=== PATIENT | female | born 1945 | race Caucasian/White ===

== ENCOUNTER → 2016-04-27 | Outpatient (REF) | payer MEDICARE ==
[2016-04-27 11:26] LABS: INR 1.77
== END | disposition home or self-care (01) ==
LOC: M SFHCCLAY 07:29
PROVIDERS: ATTEND Family Medicine
DX: Z51.81 Encounter for therapeutic drug level monitoring (principal); Z79.01 Long term (current) use of anticoagulants

== ENCOUNTER → 2016-05-11 | Outpatient (REF) | payer MEDICARE ==
[2016-05-11 11:39] LABS: INR 2.25
== END | disposition home or self-care (01) ==
LOC: M SFHCCLAY 09:01
PROVIDERS: ATTEND Family Medicine
DX: Z51.81 Encounter for therapeutic drug level monitoring (principal); Z79.01 Long term (current) use of anticoagulants

== ENCOUNTER → 2016-06-01 | Outpatient (REF) | payer MEDICARE ==
[2016-06-01 11:30] LABS: INR 2.21
== END | disposition home or self-care (01) ==
LOC: M SFHCCLAY 08:00
PROVIDERS: ATTEND Family Medicine
DX: Z51.81 Encounter for therapeutic drug level monitoring (principal); Z79.01 Long term (current) use of anticoagulants

== ENCOUNTER → 2016-06-29 | Outpatient (REF) | payer MEDICARE ==
[2016-06-29 11:51] LABS: INR 2.82
== END ==
LOC: M SFHCCLAY 09:49
PROVIDERS: ATTEND Family Medicine
DX: Z51.81 Encounter for therapeutic drug level monitoring (principal); Z79.01 Long term (current) use of anticoagulants; R30.0 Dysuria
CPT/HCPCS: 81002; 85610; 87086; G0463

== ENCOUNTER → 2016-07-29 | Outpatient (REF) | payer MEDICARE ==
[2016-07-29 11:39] LABS: INR 2.65
== END ==
LOC: M SFHCCLAY 08:02
PROVIDERS: ATTEND Family Medicine
DX: Z86.718 Personal history of other venous thrombosis and embolism (principal)

== ENCOUNTER → 2016-08-14 | Outpatient (REF) | payer MEDICARE ==
[2016-08-14 18:13] LABS: ANION GAP 6 MEQ/L (8-16); BLOOD UREA NITROGEN 14 MG/DL (7-18); CALCIUM LEVEL 9.6 MG/DL (8.8-10.2); CARBON DIOXIDE LEVEL 31 MEQ/L (21-32); CHLORIDE LEVEL 105 MEQ/L (98-107); CREATININE FOR GFR 0.87 MG/DL (0.55-1.02); GLOMERULAR FILTRATION RATE > 60.0 (>39); GLUCOSE, FASTING 83 MG/DL (83-110); POTASSIUM SERUM 3.9 MEQ/L (3.5-5.1); SODIUM LEVEL 142 MEQ/L (136-145)
[2016-08-14 19:15] LABS: BASO % 0.2 % (0.0-1.0); EOS # 0.2 K/mm3 (0.0-0.50); EOS % 1.8 % (0.0-3.0); INR 1.84; LARGE UNSTAINED CELL # 0.1 K/mm3 (0.0-0.4); LARGE UNSTAINED CELL % 1.1 % (0.0-4.0); LYMPH # 1.7 K/mm3 (1.5-4.5); MEAN CORPUSCULAR HEMOGLOBIN 28.7 pg (27.0-33.0); MEAN CORPUSCULAR HGB CONC 32.7 g/dl (32.0-36.5); MEAN CORPUSCULAR VOLUME 87.7 fl (80.0-96.0); MONO # 0.5 K/mm3 (0.0-0.8); MONO % 5.9 % (0.0-5.0); NEUTROPHILS # 6.3 K/mm3 (1.8-7.7); NEUTROPHILS % 71.9 % (36.0-66.0); PLATELET COUNT, AUTOMATED 261 k/mm3 (150-450); RED CELL DISTRIBUTION WIDTH 13.8 % (11.5-14.5); WHITE BLOOD COUNT 8.8 K/mm3 (4.0-10.0)
== END ==
LOC: M SFHCCLAY 13:02
PROVIDERS: ATTEND Family Medicine
DX: Z01.818 Encounter for other preprocedural examination (principal); S62.102A Fracture of unspecified carpal bone, left wrist, initial encounter for closed fracture; I10 Essential (primary) hypertension; Z86.718 Personal history of other venous thrombosis and embolism; Z79.01 Long term (current) use of anticoagulants; W19.XXXA Unspecified fall, initial encounter; Y92.9 Unspecified place or not applicable; Y93.9 Activity, unspecified; Y99.8 Other external cause status

== ENCOUNTER → 2016-08-26 | Outpatient (REF) | payer MEDICARE ==
[2016-08-26 12:18] LABS: INR 1.57
== END ==
LOC: M SFHCCLAY 07:28
PROVIDERS: ATTEND Family Medicine
DX: Z79.01 Long term (current) use of anticoagulants (principal)

== ENCOUNTER → 2016-09-15 | Outpatient (REF) | payer MEDICARE ==
[2016-09-15 12:39] LABS: INR 2.67
== END ==
LOC: M SFHCCLAY 08:39
PROVIDERS: ATTEND Family Medicine
DX: Z86.718 Personal history of other venous thrombosis and embolism (principal)

== ENCOUNTER → 2016-10-05 | Outpatient (REF) | payer MEDICARE ==
[2016-10-05 11:50] LABS: INR 2.08
== END ==
LOC: M SFHCCLAY 08:28
PROVIDERS: ATTEND Family Medicine
DX: Z86.718 Personal history of other venous thrombosis and embolism (principal)

== ENCOUNTER → 2016-10-26 | Outpatient (REF) | payer MEDICARE ==
[2016-10-26 11:33] LABS: INR 2.13
== END ==
LOC: M SFHCCLAY 08:35
PROVIDERS: ATTEND Family Medicine
DX: Z86.718 Personal history of other venous thrombosis and embolism (principal)

== ENCOUNTER → 2016-11-23 | Outpatient (REF) | payer MEDICARE ==
[2016-11-23 11:57] LABS: INR 1.88
== END ==
LOC: M SFHCCLAY 08:41
PROVIDERS: ATTEND Family Medicine
DX: Z86.718 Personal history of other venous thrombosis and embolism (principal)

== ENCOUNTER → 2017-04-05 | Outpatient (CLI) | payer MEDICARE ==
--- NOTE | 2017-04-05 13:23 | REP ---
Chest x-ray: Two views. History: Cough. Comparison study: April 30, 2014. Findings: The lungs are symmetrically aerated and free of infiltrate. The pleural angles are sharp. Cardiomediastinal silhouette is unremarkable. No bony abnormality is seen. No significant change from the April 30, 2014 study. Impression: No acute disease.
== END ==
LOC: M CLY 10:48
PROVIDERS: ATTEND Family Medicine
DX: R05 Cough (principal)

== ENCOUNTER → 2017-05-31 | Outpatient (REF) | payer MEDICARE ==
[2017-05-31 13:46] LABS: INR 2.36; PROTHROMBIN TIME 26.7 SECONDS (12.4-14.5)
== END ==
LOC: M SFHCCLAY 08:29
DX: Z86.718 Personal history of other venous thrombosis and embolism (principal)
CPT/HCPCS: 85610

== ENCOUNTER → 2017-08-02 | Outpatient (REF) | payer MEDICARE ==
[2017-08-02 11:50] LABS: INR 2.04; PROTHROMBIN TIME 23.7 SECONDS (12.4-14.5)
== END ==
LOC: M SFHCCLAY 08:26
DX: Z86.718 Personal history of other venous thrombosis and embolism (principal)
CPT/HCPCS: 85610

== ENCOUNTER → 2017-08-30 | Outpatient (REF) | payer MEDICARE ==
[2017-08-30 12:11] LABS: INR 1.92; PROTHROMBIN TIME 22.6 SECONDS (12.4-14.5)
== END ==
LOC: M SFHCCLAY 08:40
DX: Z86.718 Personal history of other venous thrombosis and embolism (principal)
CPT/HCPCS: 85610

== ENCOUNTER → 2017-09-27 | Outpatient (REF) | payer MEDICARE ==
[2017-09-27 11:42] LABS: INR 2.01; PROTHROMBIN TIME 23.5 SECONDS (12.4-14.5)
== END ==
LOC: M SFHCCLAY 08:59
DX: Z79.01 Long term (current) use of anticoagulants (principal)
CPT/HCPCS: 85610

== ENCOUNTER → 2017-10-25 | Outpatient (REF) | payer MEDICARE ==
[2017-10-25 12:18] LABS: INR 1.83; PROTHROMBIN TIME 21.5 SECONDS (12.1-14.4)
== END ==
LOC: M SFHCCLAY 08:23
DX: Z79.01 Long term (current) use of anticoagulants (principal)
CPT/HCPCS: 85610

== ENCOUNTER → 2017-11-22 | Outpatient (REF) | payer MEDICARE ==
[2017-11-22 12:08] LABS: INR 1.97; PROTHROMBIN TIME 22.8 SECONDS (12.1-14.4)
== END ==
LOC: M SFHCCLAY 07:53
DX: Z79.01 Long term (current) use of anticoagulants (principal)
CPT/HCPCS: 85610

== ENCOUNTER → 2018-01-17 | Outpatient (REF) | payer MEDICARE ==
[2018-01-17 12:38] LABS: INR 1.87; PROTHROMBIN TIME 21.9 SECONDS (12.1-14.4)
== END ==
LOC: M SFHCCLAY 08:40
DX: Z79.01 Long term (current) use of anticoagulants (principal)
CPT/HCPCS: 85610

== ENCOUNTER → 2018-01-31 | Outpatient (REF) | payer MEDICARE ==
[2018-01-31 12:15] LABS: INR 1.87; PROTHROMBIN TIME 21.9 SECONDS (12.1-14.4)
== END ==
LOC: M SFHCCLAY 08:25
DX: Z79.01 Long term (current) use of anticoagulants (principal)
CPT/HCPCS: 85610

== ENCOUNTER → 2018-02-14 | Outpatient (REF) | payer MEDICARE | LOC: M SFHCCLAY 08:49 | DX: Z79.01 Long term (current) use of anticoagulants (principal) | CPT/HCPCS: 85610 ==

== ENCOUNTER → 2018-03-07 | Outpatient (REF) | payer MEDICARE ==
[2018-03-07 12:06] LABS: INR 1.68; PROTHROMBIN TIME 20.1 SECONDS (12.1-14.4)
== END ==
LOC: M SFHCCLAY 08:53
DX: Z51.81 Encounter for therapeutic drug level monitoring (principal); Z79.01 Long term (current) use of anticoagulants
CPT/HCPCS: 85610

== ENCOUNTER → 2018-04-25 | Outpatient (REF) | payer MEDICARE ==
[2018-04-25 11:35] LABS: BASO % 0.5 % (0.0-1.0); EOS # 0.2 10^3/uL (0.0-0.50); EOS % 3.5 % (0.0-3.0); HEMATOCRIT 39.7 % (36.0-47.0); HEMOGLOBIN 12.5 g/dl (12.0-15.5); LYMPH # 1.4 10^3/uL (1.5-4.5); LYMPH % 23.8 % (24.0-44.0); MEAN CORPUSCULAR HEMOGLOBIN 28.1 pg (27.0-33.0); MEAN CORPUSCULAR HGB CONC 31.5 g/dl (32.0-36.5); MEAN CORPUSCULAR VOLUME 89.2 fl (80.0-96.0); MONO # 0.5 10^3/uL (0.0-0.8); MONO % 8.3 % (0.0-5.0); NEUTROPHILS # 3.8 10^3/uL (1.8-7.7); NEUTROPHILS % 63.1 % (36.0-66.0); PLATELET COUNT, AUTOMATED 223 10^3/uL (150-450); RED BLOOD COUNT 4.45 10^6/uL (4.00-5.40); WHITE BLOOD COUNT 6.1 10^3/uL (4.0-10.0)
[2018-04-25 11:45] LABS: ALBUMIN 3.2 GM/DL (3.2-5.2); ALT/SGPT 23 U/L (12-78); BILIRUBIN,TOTAL 0.5 MG/DL (0.2-1.0); BLOOD UREA NITROGEN 9 MG/DL (7-18); CARBON DIOXIDE LEVEL 29 MEQ/L (21-32); CHLORIDE LEVEL 109 MEQ/L (98-107); CHOLESTEROL LEVEL 134 MG/DL (<200); GLOMERULAR FILTRATION RATE > 60.0 (>39); GLUCOSE, FASTING 95 MG/DL (70-100); HDL CHOLESTEROL 67 MG/DL (>40); INR 1.96; LDL CHOLESTEROL 49 MG/DL (<100); NON-HDL-C 67 MG/DL; POTASSIUM SERUM 4.1 MEQ/L (3.5-5.1); PROTHROMBIN TIME 22.7 SECONDS (12.1-14.4); RHEUMATOID FACTOR QUANT < 10.0 IU/ML (<15.0); SODIUM LEVEL 145 MEQ/L (136-145); TOTAL PROTEIN 6.4 GM/DL (6.4-8.2); TRIGLYCERIDES LEVEL 91 MG/DL (<150)
[2018-04-25 11:59] LABS: ERYTHROCYTE SEDIMENTATION RATE 37 mm/hr (0-30)
[2018-04-27 00:06] LABS: ANA (HEP2) Positive (.); CYCLIC CITRULLINATED PEPTIDE 5 units (0-19)
== END ==
LOC: M SFHCCLAY 08:17
PROVIDERS: ATTEND Family Medicine
DX: Z51.81 Encounter for therapeutic drug level monitoring (principal); Z79.01 Long term (current) use of anticoagulants; I10 Essential (primary) hypertension; M25.562 Pain in left knee; F32.9 Major depressive disorder, single episode, unspecified

== ENCOUNTER → 2018-05-09 | Outpatient (REF) | payer MEDICARE ==
[2018-05-09 11:34] LABS: INR 2.1; PROTHROMBIN TIME 23.9 SECONDS (12.1-14.4)
== END ==
LOC: M SFHCCLAY 08:17
PROVIDERS: ATTEND Family Medicine
DX: Z51.81 Encounter for therapeutic drug level monitoring (principal); Z79.01 Long term (current) use of anticoagulants

== ENCOUNTER → 2018-05-23 | Outpatient (REF) | payer MEDICARE ==
[2018-05-23 11:54] LABS: INR 2.3; PROTHROMBIN TIME 25.8 SECONDS (12.1-14.4)
== END ==
LOC: M SFHCCLAY 08:11
PROVIDERS: ATTEND Family Medicine
DX: Z79.01 Long term (current) use of anticoagulants (principal)

== ENCOUNTER → 2018-06-06 | Outpatient (REF) | payer MEDICARE ==
[2018-06-06 12:02] LABS: INR 1.96; PROTHROMBIN TIME 22.7 SECONDS (12.1-14.4)
== END ==
LOC: M SFHCCLAY 08:27
PROVIDERS: ATTEND Family Medicine
DX: Z79.01 Long term (current) use of anticoagulants (principal)

== ENCOUNTER → 2018-07-06 | Outpatient (CLI) | payer MEDICARE ==
--- NOTE | 2018-07-06 12:05 | REP ---
MR LUMBAR SPINE WITHOUT CONTRAST: HISTORY: Left sided back pain. COMPARISON: 05/06/2015. Decreased signal intensity on T2-weighted images is present in the T11-12 through L5-S1 intervertebral disc. The discs are decreased in height. These findings are consistent with disc degeneration. Disc bulges are present at the T10-11 and T12-L1 levels. There is minimal effacement of the thecal sac without spinal cord compression. The neural foramina are patent on sagittal images. A diffuse disc bulge is present at the L1-2 level. There is hypertrophy of the ligamenta flava and posterior articulating facets. These findings produce mild central canal stenosis. The previously noted disc protrusion is not seen. The L1 nerves exit the neural foramina without compression. A diffuse disc bulge is present at the L2-3 level. There is hypertrophy of the ligamenta flava and posterior articulating facets. There are 3 mm of grade 1 spondylolisthesis of L2 on 3. These findings produce moderate central canal stenosis. The L2 nerves exit the neural foramina without compression. A diffuse disc bulge and small right paracentral disc protrusion are present at the L3-4 level. There is hypertrophy of the ligamenta flava and posterior articulating facets. There are 4 mm of grade 1 spondylolisthesis of L3 on 4. These findings produce mild central canal stenosis. The L3 nerves exit the neural foramina without compression. A diffuse disc bulge is present at the L4-5 level. There is minimal compression of the thecal sac. There is hypertrophy of the posterior articulating facets. The L4 nerves exit the neural foramina without compression. A left laminectomy defect is present. A diffuse disc bulge and mild size right intraforaminal and lateral disc protrusion are present. There is minimal compression of the thecal sac. There is hypertrophy of the posterior articulating facets. There is posterolateral displacement of the right L5 nerve distal to the neural foramen. The left L5 nerve exits the neural foramen without compression. The conus medullaris is normal in appearance terminating at the level of the T12-L1 intervertebral disc. Hemangiomas are present in the T12, L2, and L4 vertebral bodies. Increased signal intensity on T2-weighted images is present in the L2-S1 vertebral bodies. This represents degenerative change. IMPRESSION: 1. Mild central canal stenosis at the L1-2 level secondary to disc bulge, ligamentous, and facet hypertrophy. There has been progression of the canal stenosis. The previously noted disc protrusion is not seen. 2. Moderate central canal stenosis at the L2-3 level secondary to disc bulge, ligamentous, and facet hypertrophy and grade 1 spondylolisthesis. 3. Mild central canal stenosis at the L3-4 level secondary to disc bulge, disc protrusion, ligamentous and facet hypertrophy and grade 1 spondylolisthesis. 4. Diffuse disc bugle at the L4-5 level with minimal thecal sac compression. A left laminectomy defect is present. 5. Diffuse disc bulge at the L5-S1 level with minimal thecal sac compression. A mild sized right intraforaminal and lateral disc protrusion is present. There is posterolateral displacement of the right L5 nerve distal to the neural foramen. There is no other significant change. Electronically Signed by Iraj Goodman MD 07/06/2018 12:17 P
== END ==
LOC: M RAD 10:00
PROVIDERS: ATTEND Family Medicine
DX: M51.16 Intervertebral disc disorders with radiculopathy, lumbar region (principal); M48.061 Spinal stenosis, lumbar region without neurogenic claudication; M51.17 Intervertebral disc disorders with radiculopathy, lumbosacral region

== ENCOUNTER → 2018-07-18 | Outpatient (REF) | payer MEDICARE ==
[2018-07-18 11:39] LABS: INR 1.76; PROTHROMBIN TIME 20.8 SECONDS (12.1-14.4)
== END ==
LOC: M SFHCCLAY 08:59
PROVIDERS: ATTEND Family Medicine
DX: Z79.01 Long term (current) use of anticoagulants (principal)

== ENCOUNTER → 2018-08-01 | Outpatient (REF) | payer MEDICARE ==
[2018-08-01 11:36] LABS: INR 1.72; PROTHROMBIN TIME 20.5 SECONDS (12.1-14.4)
== END ==
LOC: M SFHCCLAY 08:34
PROVIDERS: ATTEND Family Medicine
DX: Z79.01 Long term (current) use of anticoagulants (principal)

== ENCOUNTER → 2018-08-08 | Outpatient (REF) | payer MEDICARE ==
[2018-08-08 11:40] LABS: INR 2.03; PROTHROMBIN TIME 23.3 SECONDS (12.1-14.4)
== END ==
LOC: M SFHCCLAY 08:25
PROVIDERS: ATTEND Family Medicine
DX: Z79.01 Long term (current) use of anticoagulants (principal); Z86.718 Personal history of other venous thrombosis and embolism

== ENCOUNTER → 2018-08-15 | Outpatient (REF) | payer MEDICARE ==
[2018-08-15 11:52] LABS: INR 1.83; PROTHROMBIN TIME 21.5 SECONDS (12.1-14.4)
== END ==
LOC: M SFHCCLAY 08:46
PROVIDERS: ATTEND Family Medicine
DX: Z79.01 Long term (current) use of anticoagulants (principal); Z86.718 Personal history of other venous thrombosis and embolism

== ENCOUNTER → 2018-08-22 | Outpatient (REF) | payer MEDICARE ==
[2018-08-22 11:56] LABS: INR 2.16; PROTHROMBIN TIME 24.5 SECONDS (12.1-14.4)
== END ==
LOC: M SFHCCLAY 10:34
PROVIDERS: ATTEND Family Medicine
DX: Z86.718 Personal history of other venous thrombosis and embolism (principal); Z79.01 Long term (current) use of anticoagulants

== ENCOUNTER → 2018-08-29 | Outpatient (REF) | payer MEDICARE ==
[2018-08-29 12:29] LABS: INR 2.07; PROTHROMBIN TIME 23.7 SECONDS (12.1-14.4)
== END ==
LOC: M SFHCCLAY 08:30
PROVIDERS: ATTEND Family Medicine
DX: Z79.01 Long term (current) use of anticoagulants (principal)

== ENCOUNTER → 2018-09-13 | Outpatient (REF) | payer MEDICARE ==
[2018-09-13 11:41] LABS: INR 1.85; PROTHROMBIN TIME 21.7 SECONDS (12.1-14.4)
== END ==
LOC: M SFHCCLAY 08:41
PROVIDERS: ATTEND Family Medicine
DX: Z79.01 Long term (current) use of anticoagulants (principal)

== ENCOUNTER → 2018-10-18 | Outpatient (REF) | payer MEDICARE ==
[2018-10-18 11:46] LABS: INR 2.07; PROTHROMBIN TIME 23.1 SECONDS (11.8-14.0)
== END ==
LOC: M SFHCCLAY 07:34
PROVIDERS: ATTEND Family Medicine
DX: Z79.01 Long term (current) use of anticoagulants (principal); Z86.718 Personal history of other venous thrombosis and embolism

== ENCOUNTER → 2018-11-07 | Outpatient (REF) | payer MEDICARE ==
[2018-11-07 11:41] LABS: INR 2.29
== END ==
LOC: M SFHCCLAY 08:36
PROVIDERS: ATTEND Family Medicine
DX: Z79.01 Long term (current) use of anticoagulants (principal); Z86.718 Personal history of other venous thrombosis and embolism

== ENCOUNTER 2018-12-01 21:57 | Emergency (ER) | payer MEDICARE ==
[~2018-12-01] VITALS: Ht 162.6 cm; Wt 96.0 kg
[2018-12-01] MEDS ORDERED: ONDANSETRON 4MG/2ML VIAL (J2405) IV ONE (22:45)
[2018-12-01] MEDS ORDERED: NS 1,000 ML IV ONE (22:45)
[2018-12-01 23:14] LABS: BASO % 0.4 % (0.0-1.0); EOS # 0.2 10^3/uL (0.0-0.50); EOS % 3.5 % (0.0-3.0); HEMATOCRIT 36.8 % (36.0-47.0); LYMPH # 1.8 10^3/uL (1.5-4.5); LYMPH % 26.7 % (24.0-44.0); MEAN CORPUSCULAR HEMOGLOBIN 28.6 pg (27.0-33.0); MEAN CORPUSCULAR HGB CONC 32.6 g/dl (32.0-36.5); MEAN CORPUSCULAR VOLUME 87.6 fl (80.0-96.0); MONO # 0.7 10^3/uL (0.0-0.8); MONO % 9.5 % (0.0-5.0); NEUTROPHILS # 4.1 10^3/uL (1.8-7.7); NEUTROPHILS % 59.6 % (36.0-66.0); PLATELET COUNT, AUTOMATED 218 10^3/uL (150-450); WHITE BLOOD COUNT 6.8 10^3/uL (4.0-10.0)
[2018-12-01 23:32] LABS: INR 2.99
[2018-12-01 23:33] LABS: PARTIAL THROMBOPLASTIN TIME 37.7 SECONDS (25.0-38.4)
[2018-12-01 23:39] LABS: ALBUMIN 3.4 GM/DL (3.2-5.2); ALT/SGPT 21 U/L (12-78); AMYLASE 50 U/L (25-115); BILIRUBIN,DIRECT 0.2 MG/DL (0.0-0.2); BILIRUBIN,TOTAL 0.5 MG/DL (0.2-1.0); CPK CREATINE PHOSPHOKINASE 110 U/L (26-192); LIPASE 51 U/L (73-393); MB/CK RELATIVE INDEX 1.82 (< OR =4); TOTAL PROTEIN 6.2 GM/DL (6.4-8.2); TROPONIN I < 0.02 NG/ML (< 0.10)
[2018-12-01] MEDS ORDERED: ISOVUE-370 76% 100ML VIAL (Q9967) As Ordered ONE (23:50)
--- NOTE | 2018-12-02 02:21 | REPVR ---
EXAM: CT Abdomen and Pelvis With Contrast EXAM DATE/TIME: 12/01/2018 12:10 AM CLINICAL HISTORY: 72 years old, female; Abdominal pain; Generalized TECHNIQUE: Imaging protocol: Axial computed tomography images of the abdomen and pelvis with intravenous contrast. Coronal and sagittal reformatted images were created and reviewed. Radiation optimization: All CT scans at this facility use at least one of these dose optimization techniques: automated exposure control; mA and/or kV adjustment per patient size (includes targeted exams where dose is matched to clinical indication); or iterative reconstruction. Contrast material: ISOVUE 370;Contrast volume: 100 ml;Contrast route: IV; COMPARISON: No relevant prior studies available. FINDINGS: Lungs: Mild bibasilar atelectasis. Liver: Mild diffuse fatty infiltration of liver. Gallbladder and bile ducts: Status post cholecystectomy. Pancreas: Pancreatic atrophy. Spleen: Normal. No splenomegaly. Adrenals: Normal. No mass. Kidneys and ureters: Cyst in the right kidney measuring 7 mm. Stomach and bowel: Partial colectomy with multiple bowel anastomotic surgeries. Postsurgical changes in the rectosigmoid junction with mild wall thickening at the anastomotic site and small fecal retention. Small bowel is unremarkable. Appendix: No evidence of appendicitis. Intraperitoneal space: Normal. No free air. No significant fluid collection. Vasculature: Atherosclerosis. External iliac artery bypass surgery. Lymph nodes: Normal. No enlarged lymph nodes. Bladder: Unremarkable as visualized. Reproductive: Unremarkable as visualized. Bones/joints: Diffuse demineralization of the bones with degenerative changes. Soft tissues: Unremarkable. Other findings: Coronary calcifications. IMPRESSION: Partial colectomy with multiple bowel anastomotic surgeries. Postsurgical changes in the rectosigmoid junction with mild wall thickening at the anastomotic site and small fecal retention. Small bowel is unremarkable. COMMENT: Consistent with the [employer]'s Incidental Findings Committee Report (J Am Candido Radiol 2010): Unless the patient's specific circumstances suggest otherwise, any liver lesion 0.5 cm or less, any cystic kidney lesion less than 1.0 cm, and/or any adrenal lesion 1.0 cm or less not otherwise characterized in this report as possessing suspicious or indeterminate imaging features is/are highly likely to be benign and do not require follow-up imaging or biopsy. Electronically signed by: Vivian Huggins On 12/02/2018 02:21:05 AM
[2018-12-02] MEDS ORDERED: ONDA4TAB6 PO (02:51)
[2018-12-02 03:00] VITALS: BP 142/67
--- NOTE | 2018-12-02 07:19 | ECGEPIP ---
[facility] - ED Test Date: 2018-12-01 Pat Name: MADDY SANTA Department: Room: - Gender: Female Burn[place]: : 1945 Requested By: VAL Ervin Order Number: [id number] Reading MD: Neeraj Johnston Measurements Intervals [place] Rate: 62 P: 80 MT: 250 QRS: -20 QRSD: 113 T: 24 QT: 417 QTc: 424 Interpretive Statements SINUS RHYTHM WITH SINUS ARRHYTHMIA WITH FIRST DEGREE AV BLOCK SEPTAL MYOCARDIAL INFARCTION, OF INDETERMINATE AGE NO PRIORS FOR COMPARISON Electronically Signed on 12-02-2018 7:19:26 EDT by Neeraj Johnston
== END 2018-12-02 03:10 | disposition home or self-care (01) ==
LOC: M ED 21:57
DX: R10.9 Unspecified abdominal pain (principal); I44.0 Atrioventricular block, first degree; J44.9 Chronic obstructive pulmonary disease, unspecified; I10 Essential (primary) hypertension; G47.30 Sleep apnea, unspecified; E78.5 Hyperlipidemia, unspecified; M19.90 Unspecified osteoarthritis, unspecified site; Z86.718 Personal history of other venous thrombosis and embolism; Z87.891 Personal history of nicotine dependence; Z90.49 Acquired absence of other specified parts of digestive tract
CPT/HCPCS: 74177; 80047; 80076; 82150; 82550; 82553; 83605; 83690; 84484; 85025; 85610; 85730; 93005; 93041; 96361; 96374; 99285; J2405; Q9967

== ENCOUNTER → 2018-12-05 | Outpatient (REF) | payer MEDICARE ==
[~2018-12-05] MED LIST: ONDA4TAB6 PO
[2018-12-05 12:19] LABS: INR 3.36
== END ==
LOC: M SFHCCLAY 08:35
PROVIDERS: ATTEND Family Medicine
DX: Z79.01 Long term (current) use of anticoagulants (principal); Z86.718 Personal history of other venous thrombosis and embolism

== ENCOUNTER → 2018-12-06 | Outpatient (CLI) | payer MEDICARE ==
--- NOTE | 2018-12-06 14:47 | REP ---
CT of the left hip: The study is performed without IV contrast. Axial images are acquired with helical scanning and a reformatted sagittal and coronal projections. There are no comparison studies. There is advanced osteoarthritis with subcortical cysts at the superior portion of the femoral head and in the acetabular roof. There is fusion of t the humeral head superiorly to the acetabular roof. Some of the subcortical cysts cross the joint line. Mineralization is normal. There is no fracture or dislocation. There are no calcifications or foreign bodies. Impression: Advanced osteoarthritis with subcortical cysts as described. The humeral head superiorly is fused to the acetabular roof. Electronically Signed by Miki Tran MD 12/06/2018 02:39 P
== END ==
LOC: M RAD 13:48
PROVIDERS: ATTEND Orthopaedic Surgery
DX: M16.12 Unilateral primary osteoarthritis, left hip (principal); M24.652 Ankylosis, left hip; M85.5 Aneurysmal bone cyst

== ENCOUNTER → 2018-12-20 | Outpatient (REF) | payer MEDICARE ==
[2018-12-20 12:58] LABS: INR 2.01; PROTHROMBIN TIME 22.5 SECONDS (11.8-14.0)
== END ==
LOC: M SFHCCLAY 08:14
PROVIDERS: ATTEND Family Medicine
DX: Z79.01 Long term (current) use of anticoagulants (principal); Z86.718 Personal history of other venous thrombosis and embolism

== ENCOUNTER → 2019-01-09 | Outpatient (REF) | payer MEDICARE ==
[2019-01-09 12:29] LABS: INR 2.63
== END ==
LOC: M SFHCCLAY 09:37
PROVIDERS: ATTEND Family Medicine
DX: Z79.01 Long term (current) use of anticoagulants (principal); Z86.718 Personal history of other venous thrombosis and embolism

== ENCOUNTER → 2019-02-06 | Outpatient (REF) | payer MEDICARE ==
[2019-02-06 11:36] LABS: INR 2.7; PROTHROMBIN TIME 28.5 SECONDS (11.8-14.0)
== END ==
LOC: M SFHCCLAY 08:39
PROVIDERS: ATTEND Family Medicine
DX: Z79.01 Long term (current) use of anticoagulants (principal); Z86.718 Personal history of other venous thrombosis and embolism

== ENCOUNTER → 2019-03-06 | Outpatient (REF) | payer MEDICARE ==
[2019-03-06 11:42] LABS: INR 2.45; PROTHROMBIN TIME 26.4 SECONDS (11.8-14.0)
== END ==
LOC: M SFHCCLAY 08:44
PROVIDERS: ATTEND Family Medicine
DX: Z79.01 Long term (current) use of anticoagulants (principal); Z86.718 Personal history of other venous thrombosis and embolism

== ENCOUNTER → 2019-03-27 | Outpatient (REF) | payer MEDICARE ==
[2019-03-27 17:00] LABS: ALBUMIN 3.5 GM/DL (3.2-5.2); ALT/SGPT 20 U/L (12-78); BILIRUBIN,TOTAL 0.7 MG/DL (0.2-1.0); BLOOD UREA NITROGEN 12 MG/DL (7-18); CALCIUM LEVEL 9.8 MG/DL (8.8-10.2); CARBON DIOXIDE LEVEL 30 MEQ/L (21-32); CHLORIDE LEVEL 107 MEQ/L (98-107); CHOLESTEROL LEVEL 137 MG/DL (<200); CHOLESTEROL RISK RATIO 2.107 (<5); CREATININE FOR GFR 0.78 MG/DL (0.55-1.30); GLOMERULAR FILTRATION RATE > 60.0 (>39); GLUCOSE, FASTING 91 MG/DL (70-100); HDL CHOLESTEROL 65 MG/DL (>40); LDL CHOLESTEROL 52 MG/DL (<100); NON-HDL-C 72 MG/DL; POTASSIUM SERUM 3.8 MEQ/L (3.5-5.1); SODIUM LEVEL 142 MEQ/L (136-145); TOTAL PROTEIN 6.9 GM/DL (6.4-8.2); TRIGLYCERIDES LEVEL 102 MG/DL (<150)
[2019-03-27 17:15] LABS: BASO % 0.5 % (0.0-1.0); EOS # 0.2 10^3/uL (0.0-0.5); EOS % 3.5 % (0.0-3.0); HEMATOCRIT 39.3 % (36.0-47.0); HEMOGLOBIN 12.1 g/dl (12.0-15.5); LYMPH # 1.7 10^3/uL (1.5-5.0); LYMPH % 25.3 % (24.0-44.0); MEAN CORPUSCULAR HEMOGLOBIN 27.1 pg (27.0-33.0); MEAN CORPUSCULAR HGB CONC 30.8 g/dl (32.0-36.5); MEAN CORPUSCULAR VOLUME 87.9 fl (80.0-96.0); MONO # 0.6 10^3/uL (0.0-0.8); MONO % 9.3 % (0.0-5.0); NEUTROPHILS # 4.1 10^3/uL (1.5-8.5); NEUTROPHILS % 61.1 % (36.0-66.0); PLATELET COUNT, AUTOMATED 236 10^3/uL (150-450); RED BLOOD COUNT 4.47 10^6/uL (4.00-5.40); WHITE BLOOD COUNT 6.6 10^3/uL (4.0-10.0)
== END ==
LOC: M SFHCCLAY 11:56
PROVIDERS: ATTEND Family Medicine
DX: I10 Essential (primary) hypertension (principal); E78.2 Mixed hyperlipidemia
CPT/HCPCS: 80053; 80061; 85025; G0463

== ENCOUNTER → 2019-04-28 | Outpatient (REF) | payer MEDICARE ==
[2019-04-28 11:54] LABS: INR 2.05; PROTHROMBIN TIME 22.9 SECONDS (11.8-14.0)
== END ==
LOC: M SFHCCLAY 08:37
PROVIDERS: ATTEND Family Medicine
DX: Z79.01 Long term (current) use of anticoagulants (principal); Z86.718 Personal history of other venous thrombosis and embolism

== ENCOUNTER → 2019-05-12 | Outpatient (CLI) | payer MEDICARE ==
--- NOTE | 2019-05-12 15:16 | REP ---
Bilateral lower extremity arterial Doppler ultrasound: History: History of stents. Pain in the legs. Findings: Ankle brachial indices could not be accomplished bilaterally due to patient tolerance. An occluded fem-fem bypass graft is noted exam quality is inhibited due to patient habitus and swelling. Moderate to severe plaquing is noted bilaterally. Monophasic waveforms are noted in the distal leg on the right and in the common femoral artery and proximal profunda femoral artery and the distal anterior and posterior tibial arteries on the left. No focal stenosis is seen. Right lower extremity arterial Doppler velocity chart: Right CF A 131 cm/S Profunda 84 Proximal SFA 125 Mid SFA 93 Distal SFA 76 Popliteal 85 Proximal AT A 63 Tibioperoneal trunk 84 Proximal SUPERINTENDENT PIER 65 Distal SUPERINTENDENT PIER 76 Distal AT A 112 Left lower extremity arterial Doppler velocity chart: CF A 147 cm/S Profunda 139 Proximal SFA 110 Mid SFA 74 Distal SFA 93 Popliteal 60 Proximal AT A 62 Tibioperoneal trunk 63 Proximal SUPERINTENDENT PIER 91 Distal SUPERINTENDENT PIER 83 Distal AT A 91 Electronically Signed by Domo Bates MD 05/12/2019 03:08 P
== END ==
LOC: M RAD 11:29
PROVIDERS: ATTEND Physician Assistant
DX: M79.606 Pain in leg, unspecified (principal); I73.9 Peripheral vascular disease, unspecified

== ENCOUNTER → 2019-05-29 | Outpatient (REF) | payer MEDICARE ==
[2019-05-29 12:39] LABS: BLOOD UREA NITROGEN 13 MG/DL (7-18); CREATININE FOR GFR 0.79 MG/DL (0.55-1.30); GLOMERULAR FILTRATION RATE > 60.0 (>39)
== END ==
LOC: M LABDRAWC 11:11
PROVIDERS: ATTEND Physician Assistant
DX: I70.213 Atherosclerosis of native arteries of extremities with intermittent claudication, bilateral legs (principal); I87.2 Venous insufficiency (chronic) (peripheral)

== ENCOUNTER → 2019-05-29 | Outpatient (REF) | payer MEDICARE ==
[2019-05-29 12:50] LABS: INR 2.49; PROTHROMBIN TIME 26.8 SECONDS (11.8-14.0)
== END ==
LOC: M SFHCCLAY 08:54
PROVIDERS: ATTEND Family Medicine
DX: Z79.01 Long term (current) use of anticoagulants (principal); Z86.718 Personal history of other venous thrombosis and embolism

== ENCOUNTER → 2019-05-29 | Outpatient (CLI) | payer MEDICARE | LOC: M PT 10:44 | PROVIDERS: ATTEND Family Medicine | DX: M54.16 Radiculopathy, lumbar region (principal); I70.213 Atherosclerosis of native arteries of extremities with intermittent claudication, bilateral legs; I87.2 Venous insufficiency (chronic) (peripheral); Z79.01 Long term (current) use of anticoagulants; Z86.718 Personal history of other venous thrombosis and embolism ==

== ENCOUNTER → 2019-06-02 | Outpatient (CLI) | payer MEDICARE ==
[~2019-06-02] MED LIST changes: +ISOVUE-370 76% 100ML VIAL (Q9967) As Ordered ONE
--- NOTE | 2019-06-02 13:52 | REP ---
BILATERAL LOWER EXTREMITY DUPLEX VENOUS ULTRASOUND: VENOUS INSUFFICIENCY STUDY. HISTORY: Venous insufficiency. FINDINGS: The deep veins are anechoic and fully compressible from the groin to the popliteal fossa on two-dimensional scanning in both lower extremities. Color flow and spectral Doppler interrogation show no evidence of DVT. REFLUX EVALUATION: In the deep system, there is reflux greater than 0.5 seconds in duration from the common femoral vein segments to the popliteal vein segment and throughout the length of the greater saphenous vein. No reflux is seen in the right lesser saphenous vein or anterior accessory greater saphenous vein. Proximally, at the greater saphenous femoral vein junction, there is 3.8-second duration reflux in a 6.5 mm greater saphenous vein. At mid thigh, reflux duration is 4.8 seconds and diameter of the greater saphenous vein is 5.1 mm. At the knee, the greater saphenous vein measures 4.1 mm in diameter and demonstrates 6.7-second duration reflux. The lesser saphenous vein measures 1.5 mm. On the left, there is mild reflux in the deep system from the common femoral vein to the mid superficial femoral vein. No reflux is observed in the distal superficial femoral vein or popliteal vein. Reflux is present in the greater saphenous vein from proximal to mid thigh level to the knee. Minimal reflux is seen in the left lesser saphenous and anterior greater saphenous accessory vein. On the left, the greater saphenous vein measures 4.7 mm in greatest diameter at the proximal saphenofemoral junction. At mid thigh, its dimensions are 4.3 mm and it displays 4.7-second duration reflux. At the knee, it measures 3.8 mm and reflux duration is 4.4 seconds. 2.9-second duration reflux was observed in a 4 mm lesser saphenous vein. IMPRESSION: No evidence of DVT. Bilateral deep and superficial system reflux as above. Electronically Signed by Domo Bates MD 06/02/2019 02:18 P
== END ==
LOC: M RAD 10:00
PROVIDERS: ATTEND Physician Assistant
DX: I87.2 Venous insufficiency (chronic) (peripheral) (principal); I70.213 Atherosclerosis of native arteries of extremities with intermittent claudication, bilateral legs
CPT/HCPCS: 75635; 93970; Q9967

== ENCOUNTER → 2019-06-19 | Outpatient (CLI) | payer MEDICARE ==
[~2019-06-19] MED LIST changes: +ACETAMINOPHEN TAB 650MG DOSE (2X325MG) PO PRN; +ADV500INH INH; +AMLO25TA PO; +BIOT5TAB3 PO; +CALC600T57 PO; +CLOPIDOGREL 75 MG TAB As Ordered ONE; +CLOPIDOGREL 75 MG TAB PO ONE; +COUM1TAB17 PO; +CYMB1CAP4 PO; +D 101000 PO; +FISH1000 PO; +FLUT15.820; +HEPARIN 1,000 UNITS/ML 10ML VIAL (FOR RADIOLOGY& DIALYSIS ONLY)(J1644-10) As Ordered ONE; +ISOVUE-300 61% 50ML VIAL (Q9967) As Ordered ONE; -ISOVUE-370 76% 100ML VIAL (Q9967) As Ordered ONE; +LIDOCAINE 1% MDV 20ML VIAL As Ordered ONE; +LOSA100T50 PO; +MIDAZOLAM INJ 2 MG/2 ML VIAL (J2250) As Ordered ONE; +MULTTAB86 PO; +PERCOCET 5MG/325MG TAB As Ordered ONE; +PERCOCET 5MG/325MG TAB PO PRN; +PROAAER10 INH; +PROBCAP14 PO; +SIMV20TA22 PO; +TRAM50TA2 PO; +TRAV04OPD OP; +ceFAZolin 1GM INJ (J0690 PER 500MG) As Ordered ONE; +fentaNYL 100 MCG/2 ML INJECTION (J3010) As Ordered ONE; +hydrALAZINE INJ 20 MG/ML VIAL As Ordered ONE
[2019-06-19 07:06] LABS: HEMATOCRIT 38.6 % (36.0-47.0); MEAN CORPUSCULAR HEMOGLOBIN 26.7 pg (27.0-33.0); MEAN CORPUSCULAR HGB CONC 31.1 g/dl (32.0-36.5); PLATELET COUNT, AUTOMATED 211 10^3/uL (150-450); RED BLOOD COUNT 4.49 10^6/uL (4.00-5.40); WHITE BLOOD COUNT 6.2 10^3/uL (4.0-10.0)
[2019-06-19 07:19] LABS: INR 1.82; PROTHROMBIN TIME 20.8 SECONDS (11.8-14.0)
[2019-06-19 07:33] LABS: BLOOD UREA NITROGEN 12 MG/DL (7-18); CALCIUM LEVEL 9.8 MG/DL (8.8-10.2); CARBON DIOXIDE LEVEL 29 MEQ/L (21-32); CHLORIDE LEVEL 108 MEQ/L (98-107); CREATININE FOR GFR 0.77 MG/DL (0.55-1.30); GLOMERULAR FILTRATION RATE > 60.0 (>39); GLUCOSE, FASTING 91 MG/DL (70-100); POTASSIUM SERUM 3.6 MEQ/L (3.5-5.1); SODIUM LEVEL 141 MEQ/L (136-145)
--- NOTE | 2019-06-19 10:52 | ROOPDOC ---
[facility] Report Of Operation Report of Operation DATE OF PROCEDURE: 06/19/19 PREPROCEDURE DIAGNOSES: Atherosclerosis of [place] arteries with lifestyle limiting claudication POSTPROCEDURE DIAGNOSES: Same PROCEDURE: 1. US guided access right and left common femoral arteries 2. Aortoiliofemoral arteriograms 3. 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 Predilate iliac arteries with 3 x 100 mustang balloons and a 3 x 100 mustang right DEV and 4 x 100 gregory balloon left DEV 5. Kissing stents bilateral common iliac arteries with 8 x 29 VBX stents and post-dilation with 9 x 40 mustang and 8 x 40 conquest balloons 6. Angioplasty left external iliac artery with 9 x 40 conquest balloon, followed by 8 x 27 express stent 7. Completion arteriograms 8. Mynx closure bilateral common femoral arteries SURGEON: Criss Fernando MD ANESTHESIA: Local anesthesia 10 mL lidocaine. Moderate intravenous conscious sedation was supervised by Dr. Fernando. The patient was independently monitored by registered nurse assigned to the Department of radiology using automated blood pressure, EKG, and pulse oximetry. The detailed sedation record is permanently stored in the hospital information system. The following is a brief sedation record: Start time 07:47,. Time 10:01, Versed 4 mg IV, fentanyl 200 g IV, heparin 5000 units IV, Ancef 1 g IV. CONTRAST: 56 mL Isovue-300 INDICATION FOR PROCEDURE: This is a very pleasant 73-year-old patient with known atherosclerosis in the [place] arteries who is status post procedures done in [place] and was lost to follow-up down there. She has a history of a left calf fasciotomy for DVT, bilateral kissing stents in the iliac arteries with failure of the left stent, right to left femorofemoral bypass that is occluded. She returns with lifestyle limiting claudication and can only go about 10-20 feet before she has to stop and rest due to pain primarily in the left calf greater than the right. She also would like to have her left hip replaced, but her ort hopedic doctor said she needs to improve her blood flow first. We have reviewed a CTA that reveals poorly expanded common iliac artery stents bilaterally with heavy calcified plaque, and we discussed the risks benefits and alternatives to an arteriogram to try to improve flow through the iliac vessels. The patient also has a stenosis in the left popliteal artery, but is not occluded and I feel the bigger issue is her inflow. Because there are already kissing stents, we do not have an up and over capability to treat the left from the right, and the patient is obese with back and leg issues and cannot lay completely flat, so I believe an antegrade procedure would be extremely challenging. Therefore, today, would like to improve her inflow and see if this corrects her claudication enough that she can proceed with her hip surgery and ambulate at home without lifestyle limitation. We had a lengthy discussion and she was agreeable to proceed. Informed consent was obtained. INTERPRETATION: 1. The aortoiliac segments are heavily calcified and diffusely ectatic. There is good inflow through the aorta despite ectatic distal aortic joseph. The bilateral common iliac artery stents are heavily stenotic and not well expanded. There is poststenotic dilatation bilaterally in the common iliac arteries proximal to the origin of the hypogastric. The hypogastric arteries are also stenotic but patent, and the external iliac artery on the right is patent with good runoff into the common femoral artery, but on the left there is a stenosis at the origin of the external iliac artery opposite hypogastric artery with an area of focal heavy plaque with about 50% luminal compromise, but then good runoff through the rest of the external iliac artery and to patent common femoral artery. No flow was noted through the femorofemoral bypass, but this is known to be occluded. 2. Multiple images were taken of the common iliac arteries while trying to cross through the near occlusion on the left. An image was also taken through the catheter once we cross through on the left to make sure we were in the true lumen and not in a dissection plane. Following predilation of the iliac arteries, placement of balloon expandable covered stent, post-dilation with a conquest and mustang balloons, there was widely patent inflow through the common iliac arteries with no extravasation dissection or embolization. 3. The left external iliac origin had a 50% luminal compromise due to plaque and a flow limiting stenosis that did not improve significantly after angioplasty with a by 40 conquest balloon for three-minute inflations. Therefore, we did place an 8 x 27 express stent and post-dilated this with a 9 x 40 conquest balloon and following this there was widely patent flow with no dissection embolization or extravasation noted and no significant residual stenosis. 4. Runoff of the lower extremities was not performed today in order to save contrast, and because we have CTA images of the lower extremities for future reference if we feel additional intervention is warranted despite improvement in inflow today. REPORT OF OPERATION: The patient was brought to the angiographic suite in stable condition and placed supine on the fluoroscopic table this immediately post a problem. She could not lay flat or extend either leg. She is obese, and has deep groins, and this would make access extremely challenging with her sitting up in her legs bent. We spent a considerable amount of time trying to position her so that her back pain was manageable and her leg pain was manageable, but in the end the patient was very frustrated and almost ready to give up. I suggested we do the timeout and give her a bit of sedation and see if this would help her relax enough that we could position her in a way that we could do the procedure and she could tolerate it. A timeout was performed, and sedation was administered without complication. This did help the patient relax enough that we can get her flat enough to do the procedure, although she still had about a 30 bend at the groin. I did warn her that this was going to be challenging without her legs straight, but she was definitely more comfortable and willing to proceed. She was prepped and draped in a sterile fashion. Local anesthesia was administered to the skin and subcutaneous tissue over the right common femoral artery and a microneedle was used to access the right common femoral artery proximal to the failed femorofemoral bypass under ultrasound guidance. A wire was passed through this access into fluoroscopic guidance the micro-sheath was placed. We then were able to navigate a Glidewire through the existing stent into the distal aorta. Sheath was removed and a 6 Bruneian sheath was placed and flushed with saline. An Omni flushed catheter was advanced in the distal aorta and in aortoiliofemoral arteriogram was performed. Anna interpretation above. Next, local anesthesia was ministered to skin and subcutaneous tissue over the left common iliac artery and a microneedle was used to access the artery under ultrasound guidance. This leg was bent more than the other, and this was a challenging access. However, we were able to access the artery safely proximal to the failed femorofemoral bypass. The wire was passed through this access and a micro-sheath was placed. We attempted to navigated Glidewire into the aorta, but it would not passed through the stenosis at the common iliac artery. We tried repeatedly for about 15-20 minutes, but this was unsuccessful. We then replaced the microwire and we were able to navigate this through, so we knew that there was a patent opening in the [place] vessel. Next, we tried to pass a Glidewire and catheter up through the stenosis, but we were unsuccessful with this as well. Unfortunately, due to the angulation in the groin, although this was very challenging. We then selected and 018 wire and we were able to carefully navigate this up through the near occlusion in the existing stent into the true lumen of the aorta. We exchange the sheath for a 4 Bruneian micro-sheath over the wire using the Seldinger technique and flushed the sheath was saline. We then passed a [place] catheter over the wire into the aorta and exchange the wire for an O35 wire. Over this wire, we advanced a 7 Bruneian sheath in exchange for the 4 Bruneian, and this was flushed with saline. We then replaced the [place] catheter and switched back to the 018 wire and placed a 4 x 100 Gregory balloon over the wire on the left through the common iliac artery occlusion, and on the other side a [address] over the wire on the right through the common iliac artery, and inflated the balloons. Unfortunately, the balloon on the left popped shortly after inflation. We then exchanged it for 3 x 100 balloon over the wire with the thought that this might be a little more sturdy balloon to help pre-dilate, but shortly after inflation this balloon also popped. This point, I was concerned that the previously placed stents may have been ineffective because the left stent could not be fully expanded due to bulky plaque and sharp calcifications. Therefore, we selected covered balloon- expandable iliac stents. 8 x 29 VBX stents were advanced carefully through the heavy plaque in the left common iliac artery and easily through the right common iliac artery after predilation. We then inflated the balloons to expand the stent, but the left stent did not fully inflate due to a very tight waist. However, the balloon did not pop which was a good sign. We then attempted to post-dilate the stents with [address]'s, but the left balloon again did not inflate at the area of heavy is plaque at the origin of the common iliac artery and the stent did not fully open. As a last effort, we tried a high pres sure balloon, and placed 8 x 40 conquest balloon across both common iliac artery stents, and we were finally able to fully open both stents successfully. We then post dilated with a [address] Completion arteriogram showed widely patent inflow through both stents. We did have a small focal stenosis and dissection at the origin of the external iliac artery opposite the hypogastric origin, and this was initially angioplastied with a 9 x 40 conquest balloon, but there was still flow-limiting stenosis and dissection, and therefore a 8 x 27 express stent was deployed and post dilated with a 9 x 40 conquest balloon and there was widely patent inflow through the external iliac artery with no longer any flow-limiting dissection or stenosis, and no extravasation from any of the areas of intervention. For today, this concluded our procedure. Mynx closure devices were deployed at both common iliac arteries with good hemostasis and pressure was held for 10 minutes. The patient was then taken back to recovery in stable condition. She tolerated the procedure and the sedation fairly well considering her chronic back and leg pain. ESTIMATED BLOOD LOSS: Approximately 10 mL. COMPLICATIONS: None. PLAN: We will see the patient back in a week to check her groin access sites and see how she is doing. It is okay to resume her Coumadin tonight. We will give her a single dose of Plavix postprocedure due to stent placement, but her Coumadin will be enough for anticoagulation following that, and she will not need a prescription for Plavix. It is okay to resume her home medications and diet. No strenuous exercise for the next 48 hours. CRISS FERNANDO MD Jun 19, 2019 10:52
[2019-06-19 14:34] VITALS: BP 178/86
== END ==
LOC: M IRPRO 06:33
PROVIDERS: ATTEND Surgery Vascular Surgery
DX: I70.213 Atherosclerosis of native arteries of extremities with intermittent claudication, bilateral legs (principal); I70.92 Chronic total occlusion of artery of the extremities; I87.2 Venous insufficiency (chronic) (peripheral); I10 Essential (primary) hypertension; E66.9 Obesity, unspecified; F32.9 Major depressive disorder, single episode, unspecified; F41.9 Anxiety disorder, unspecified; J44.9 Chronic obstructive pulmonary disease, unspecified; J45.909 Unspecified asthma, uncomplicated; Z79.01 Long term (current) use of anticoagulants; Z79.899 Other long term (current) drug therapy; Z86.718 Personal history of other venous thrombosis and embolism; Z87.891 Personal history of nicotine dependence
CPT/HCPCS: 37221; 37223; 75716; 80048; 85027; 85610; 99152; 99153; C1725; C1729; C1760; C1769; C1874; C1876; C1887; C1894; J0690; J1644; J2250; J3010; Q9967

== ENCOUNTER → 2019-07-24 | Outpatient (REF) | payer MEDICARE ==
[~2019-07-24] MED LIST changes: -ACETAMINOPHEN TAB 650MG DOSE (2X325MG) PO PRN; -CLOPIDOGREL 75 MG TAB As Ordered ONE; -CLOPIDOGREL 75 MG TAB PO ONE; -HEPARIN 1,000 UNITS/ML 10ML VIAL (FOR RADIOLOGY& DIALYSIS ONLY)(J1644-10) As Ordered ONE; -ISOVUE-300 61% 50ML VIAL (Q9967) As Ordered ONE; -LIDOCAINE 1% MDV 20ML VIAL As Ordered ONE; -MIDAZOLAM INJ 2 MG/2 ML VIAL (J2250) As Ordered ONE; -PERCOCET 5MG/325MG TAB As Ordered ONE; -PERCOCET 5MG/325MG TAB PO PRN; -ceFAZolin 1GM INJ (J0690 PER 500MG) As Ordered ONE; -fentaNYL 100 MCG/2 ML INJECTION (J3010) As Ordered ONE; -hydrALAZINE INJ 20 MG/ML VIAL As Ordered ONE
[2019-07-24 16:34] LABS: INR 2.53; PROTHROMBIN TIME 27.1 SECONDS (11.8-14.0)
== END ==
LOC: M SFHCCLAY 09:47
PROVIDERS: ATTEND Family Medicine
DX: Z79.01 Long term (current) use of anticoagulants (principal); Z86.718 Personal history of other venous thrombosis and embolism

== ENCOUNTER → 2019-10-30 | Outpatient (REF) | payer MEDICARE ==
[2019-10-31 11:47] LABS: INR 4.18; PROTHROMBIN TIME 40.5 SECONDS (11.8-14.0)
== END ==
LOC: M SFHCCLAY 15:41
PROVIDERS: ATTEND Nurse Practitioner Family
DX: Z79.01 Long term (current) use of anticoagulants (principal)

== ENCOUNTER → 2020-02-22 | Outpatient (REF) | payer MEDICARE ==
[2020-02-22 16:13] LABS: BASO % 0.3 % (0.0-1.0); EOS # 0.2 10^3/uL (0.0-0.5); EOS % 2.7 % (0.0-3.0); HEMATOCRIT 37.6 % (36.0-47.0); HEMOGLOBIN 11.2 g/dl (12.0-15.5); LYMPH # 1.3 10^3/uL (1.5-5.0); LYMPH % 19.9 % (24.0-44.0); MEAN CORPUSCULAR HEMOGLOBIN 26.9 pg (27.0-33.0); MEAN CORPUSCULAR HGB CONC 29.8 g/dl (32.0-36.5); MEAN CORPUSCULAR VOLUME 90.4 fl (80.0-96.0); MONO # 0.6 10^3/uL (0.0-0.8); MONO % 9.7 % (0.0-5.0); NEUTROPHILS # 4.3 10^3/uL (1.5-8.5); NEUTROPHILS % 66.8 % (36.0-66.0); PLATELET COUNT, AUTOMATED 189 10^3/uL (150-450); RED BLOOD COUNT 4.16 10^6/uL (4.00-5.40); WHITE BLOOD COUNT 6.4 10^3/uL (4.0-10.0)
[2020-02-22 16:40] LABS: ALBUMIN 3.5 GM/DL (3.2-5.2); ALT/SGPT 21 U/L (12-78); BILIRUBIN,TOTAL 0.5 MG/DL (0.2-1.0); BLOOD UREA NITROGEN 18 MG/DL (7-18); CALCIUM LEVEL 9.5 MG/DL (8.8-10.2); CARBON DIOXIDE LEVEL 27 MEQ/L (21-32); CHLORIDE LEVEL 111 MEQ/L (98-107); CHOLESTEROL LEVEL 111 MG/DL (<200); CREATININE FOR GFR 0.96 MG/DL (0.55-1.30); GLOMERULAR FILTRATION RATE > 60.0 (>39); GLUCOSE, FASTING 151 MG/DL (70-100); HDL CHOLESTEROL 60 MG/DL (>40); LDL CHOLESTEROL 27 MG/DL (<100); NON-HDL-C 51 MG/DL; SODIUM LEVEL 143 MEQ/L (136-145); TOTAL PROTEIN 6.3 GM/DL (6.4-8.2); TRIGLYCERIDES LEVEL 119 MG/DL (<150)
== END ==
LOC: M SFHCCLAY 09:42
PROVIDERS: ATTEND Family Medicine
DX: E78.2 Mixed hyperlipidemia (principal); I10 Essential (primary) hypertension
CPT/HCPCS: 80053; 80061; 85025; G0463

== ENCOUNTER → 2020-03-25 | Outpatient (REF) | payer MEDICARE ==
[2020-03-25 16:40] LABS: INR 2.17; PROTHROMBIN TIME 24.7 SECONDS (12.5-14.3)
== END ==
LOC: M SFHCCLAY 13:45
PROVIDERS: ATTEND Family Medicine
DX: Z79.01 Long term (current) use of anticoagulants (principal); Z86.718 Personal history of other venous thrombosis and embolism

== ENCOUNTER → 2020-04-26 | Outpatient (REF) | payer MEDICARE ==
[2020-04-26 16:12] LABS: HEMATOCRIT 39.8 % (36.0-47.0); HEMOGLOBIN 12.3 g/dl (12.0-15.5); MEAN CORPUSCULAR HGB CONC 30.9 g/dl (32.0-36.5); MEAN CORPUSCULAR VOLUME 90.5 fl (80.0-96.0); PLATELET COUNT, AUTOMATED 238 10^3/uL (150-450); WHITE BLOOD COUNT 6.9 10^3/uL (4.0-10.0)
== END ==
LOC: M LABDRAWC 15:40
PROVIDERS: ATTEND Physician Assistant Medical
DX: R19.5 Other fecal abnormalities (principal)

== ENCOUNTER → 2020-05-18 | Outpatient (CLI) | payer MEDICARE ==
[~2020-05-18] MED LIST changes: +SIMB1SUS OD; +WARF-18 PO; +WARF-23 PO
== END ==
LOC: M LABSMTC 10:12
PROVIDERS: ATTEND Anesthesiology
DX: Z01.812 Encounter for preprocedural laboratory examination (principal); Z20.822 Contact with and (suspected) exposure to COVID-19

== ENCOUNTER 2020-05-23 11:55 | Day surgery (SDC) | payer MEDICARE ==
[~2020-05-23] VITALS: Ht 162.6 cm; Wt 83.4 kg
[~2020-05-23 11:55] MED LIST changes: +NS 1,000 ML IV ONE
[2020-05-23] MEDS ORDERED: fentaNYL 100 MCG/2 ML INJECTION (J3010) As Ordered ONE (14:32)
[2020-05-23] MEDS ORDERED: propofoL 200 MG/20 ML VIAL As Ordered ONE (14:32)
[2020-05-23] MEDS ORDERED: LIDOCAINE 2% 100MG/5ML SDV (FOR ANES.) As Ordered ONE (14:32)
--- NOTE | 2020-05-23 14:45 | ROOR ---
Patient Name: Bhavana Chong Procedure Date: 05/23/2020 2:34 PM Date of : 1945 Age: 74 Room: [facility] Gender: Female Note Status: Finalized Procedure: Upper GI endoscopy Indications: Heme positive stool Providers: Goldy GRIFFITH MD Referring MD: GABRIELA LANDRY DO Requesting Provider: Medicines: Monitored Anesthesia Care Complications: No immediate complications. Procedure: Pre-Anesthesia Assessment: - The heart rate, respiratory rate, oxygen saturations, blood pressure, adequacy of pulmonary ventilation, and response to care were monitored throughout the procedure. The Endoscope was introduced through the mouth, and advanced to the second part of duodenum. The upper GI endoscopy was accomplished without difficulty. The patient tolerated the procedure well. Findings: The esophagus was normal. The stomach was normal. The examined duodenum was normal. Impression: - Normal esophagus. - Normal stomach. - Normal examined duodenum. - No specimens collected. Recommendation: - Perform a colonoscopy today. Procedure Code(s): --- Professional --- 06965, Esophagogastroduodenoscopy, flexible, transoral; diagnostic, including collection of specimen(s) by brushing or washing, when performed (separate procedure) Diagnosis Code(s): --- Professional --- R19.5, Other fecal abnormalities CPT copyright 2019 [employer]. All rights reserved. The codes documented in this report are preliminary and upon materials planning analyst review may be revised to meet current compliance requirements. Goldy Griffith MD Goldy GRIFFITH MD 05/23/2020 2:45:23 PM Electronically signed by Goldy GRIFFITH MD Number of Addenda: 0 Note Initiated On: 05/23/2020 2:34 PM Estimated Blood Loss: Estimated blood loss: none.
--- NOTE | 2020-05-23 15:10 | ROOR ---
Patient Name: Bhavana Chong Procedure Date: 05/23/2020 2:34 PM Date of : 1945 Age: 74 Room: [facility] Gender: Female Note Status: Finalized Procedure: Colonoscopy Indications: Positive fecal immunochemical test Providers: Goldy GRIFFITH MD Referring MD: GABRIELA LANDRY DO Requesting Provider: Medicines: Monitored Anesthesia Care Complications: No immediate complications. Procedure: Pre-Anesthesia Assessment: - The heart rate, respiratory rate, oxygen saturations, blood pressure, adequacy of pulmonary ventilation, and response to care were monitored throughout the procedure. The Colonoscope was introduced through the anus and advanced to the ileocolonic anastomosis. The colonoscopy was performed without difficulty. The patient tolerated the procedure well. The quality of the bowel preparation was good. Findings: The perianal and digital rectal examinations were normal. There was evidence of a prior functional end-to-end ileo-anal anastomosis in the distal rectum. This was patent and was characterized by healthy appearing mucosa. The ileum, 25 cm from the ileocolonic anastomosis contained one semi-sessile polyp. The polyp was small in diameter. Biopsies were taken with a cold forceps for histology. The remainder of the exam in the terminal ileum was normal. A localized area of moderately nodular mucosa was found at the anus. Biopsies were taken with a cold forceps for histology. Impression: - Patent functional end-to-end ileo-anal anastomosis, characterized by healthy appearing mucosa. - The small bowel was visualized to 40 cm proximal to the ileoanal anastomosis. - One polyp in the ileum, 25 cm from the ileocolonic anastomosis. Biopsied. - Nodular mucosa at the anus. Biopsied. Recommendation: - Telephone endoscopist for pathology results in 2 weeks. Procedure Code(s): --- Professional --- 69252, Colonoscopy, flexible; with biopsy, single or multiple Diagnosis Code(s): --- Professional --- R19.5, Other fecal abnormalities K62.89, Other specified diseases of anus and rectum D13.39, Benign neoplasm of other parts of small intestine Z98.0, Intestinal bypass and anastomosis status CPT copyright 2019 [employer]. All rights reserved. The codes documented in this report are preliminary and upon docking saw operator review may be revised to meet current compliance requirements. Goldy Griffith MD Goldy GRIFFITH MD 05/23/2020 3:10:00 PM Electronically signed by Goldy GRIFFITH MD Number of Addenda: 0 Note Initiated On: 05/23/2020 2:34 PM Estimated Blood Loss: Estimated blood loss: none.
[2020-05-23 15:30] VITALS: BP 155/69
== END 2020-05-23 15:39 | disposition home or self-care (01) ==
LOC: M OPP 11:55
PROVIDERS: ATTEND Internal Medicine Gastroenterology
DX: R19.5 Other fecal abnormalities (principal); K62.0 Anal polyp; K62.89 Other specified diseases of anus and rectum; Z98.0 Intestinal bypass and anastomosis status; D13.39 Benign neoplasm of other parts of small intestine; I10 Essential (primary) hypertension; E78.5 Hyperlipidemia, unspecified; K58.9 Irritable bowel syndrome, unspecified; M19.90 Unspecified osteoarthritis, unspecified site; F41.9 Anxiety disorder, unspecified; F32.9 Major depressive disorder, single episode, unspecified; J44.9 Chronic obstructive pulmonary disease, unspecified; G47.30 Sleep apnea, unspecified; Z86.718 Personal history of other venous thrombosis and embolism; Z86.14 Personal history of Methicillin resistant Staphylococcus aureus infection; Z87.891 Personal history of nicotine dependence; Z88.8 Allergy status to other drugs, medicaments and biological substances; Z79.01 Long term (current) use of anticoagulants; Z79.899 Other long term (current) drug therapy; Z80.41 Family history of malignant neoplasm of ovary; Z80.3 Family history of malignant neoplasm of breast; Z80.1 Family history of malignant neoplasm of trachea, bronchus and lung; Z83.3 Family history of diabetes mellitus; Z80.8 Family history of malignant neoplasm of other organs or systems
CPT/HCPCS: 43235; 45380; 88305; J3010

== ENCOUNTER → 2020-05-28 | Outpatient (REF) | payer MEDICARE ==
[~2020-05-28] MED LIST changes: -NS 1,000 ML IV ONE
[2020-05-28 16:30] LABS: BLOOD UREA NITROGEN 16 MG/DL (7-18); CALCIUM LEVEL 9.7 MG/DL (8.8-10.2); CARBON DIOXIDE LEVEL 29 MEQ/L (21-32); CHLORIDE LEVEL 109 MEQ/L (98-107); GLOMERULAR FILTRATION RATE > 60.0 (>39); GLUCOSE, FASTING 128 MG/DL (70-100); POTASSIUM SERUM 4.4 MEQ/L (3.5-5.1); SODIUM LEVEL 145 MEQ/L (136-145)
[2020-05-28 19:27] LABS: HEMOGLOBIN A1c 5.8 %
== END ==
LOC: M SFHCCLAY 10:25
PROVIDERS: ATTEND Family Medicine
DX: R73.09 Other abnormal glucose (principal); I10 Essential (primary) hypertension
CPT/HCPCS: 80048; 83036; G0463

== ENCOUNTER → 2020-08-20 | Outpatient (REF) | payer MEDICARE ==
[2020-08-21 12:01] LABS: BASO % 0.5 % (0.0-1.0); EOS # 0.2 10^3/uL (0.0-0.5); EOS % 2.6 % (0.0-3.0); HEMATOCRIT 40.3 % (36.0-47.0); HEMOGLOBIN 12.6 g/dl (12.0-15.5); LYMPH # 1.6 10^3/uL (1.5-5.0); LYMPH % 19.5 % (24.0-44.0); MEAN CORPUSCULAR HEMOGLOBIN 28.4 pg (27.0-33.0); MEAN CORPUSCULAR HGB CONC 31.3 g/dl (32.0-36.5); MEAN CORPUSCULAR VOLUME 90.8 fl (80.0-96.0); MONO # 0.7 10^3/uL (0.0-0.8); MONO % 8.7 % (2.0-8.0); NEUTROPHILS # 5.5 10^3/uL (1.5-8.5); NEUTROPHILS % 67.7 % (36.0-66.0); PLATELET COUNT, AUTOMATED 231 10^3/uL (150-450); RED BLOOD COUNT 4.44 10^6/uL (4.00-5.40); WHITE BLOOD COUNT 8.2 10^3/uL (4.0-10.0)
[2020-08-21 12:31] LABS: ALBUMIN 3.6 GM/DL (3.2-5.2); ALT/SGPT 26 U/L (12-78); BILIRUBIN,TOTAL 0.8 MG/DL (0.2-1.0); BLOOD UREA NITROGEN 18 MG/DL (7-18); CALCIUM LEVEL 10.3 MG/DL (8.8-10.2); CARBON DIOXIDE LEVEL 31 MEQ/L (21-32); CHLORIDE LEVEL 106 MEQ/L (98-107); GLOMERULAR FILTRATION RATE > 60.0 (>39); GLUCOSE, FASTING 108 MG/DL (70-100); POTASSIUM SERUM 4.6 MEQ/L (3.5-5.1); SODIUM LEVEL 142 MEQ/L (136-145); TOTAL PROTEIN 6.8 GM/DL (6.4-8.2)
== END ==
LOC: M SFHCCLAY 14:37
PROVIDERS: ATTEND Family Medicine
DX: R60.9 Edema, unspecified (principal); I10 Essential (primary) hypertension
CPT/HCPCS: 80053; 85025; G0463

== ENCOUNTER 2020-09-10 11:31 | Outpatient (RCR) | payer MEDICARE | END 2020-09-16 | LOC: M PT 11:31 | PROVIDERS: ATTEND Family Medicine | DX: R60.9 Edema, unspecified (principal) ==

== ENCOUNTER 2020-10-15 13:19 | Outpatient (RCR) | payer MEDICARE | END 2020-10-16 | LOC: M PT 13:19 | PROVIDERS: ATTEND Family Medicine | DX: R60.9 Edema, unspecified (principal) ==

== ENCOUNTER 2020-11-05 09:04 | Outpatient (RCR) | payer MEDICARE | END 2020-11-16 | LOC: M PT 09:04 | PROVIDERS: ATTEND Family Medicine | DX: M48.062 Spinal stenosis, lumbar region with neurogenic claudication (principal) ==

== ENCOUNTER → 2020-11-18 | Outpatient (CLI) | payer MEDICARE ==
--- NOTE | 2020-11-18 17:49 | REP ---
INDICATION: LYNETTE LEG CLAUDICATION ATHSCL THREE AFFILIATED ARTERIES COMPARISON: 05/12/2019. TECHNIQUE: Real time marshall scale and Duplex Doppler evaluation of the bilateral lower extremity arterial vasculature using linear high frequency transducer. FINDINGS: Marshall scale and duplex doppler images demonstrate moderate to severe diffuse plaque bilaterally. 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 Diffuse biphasic and triphasic waveforms are seen bilaterally, except for monophasic waveform in the left profunda. There is no compelling duplex Doppler sonographic evidence of hemodynamically significant stenosis bilaterally. 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 Moderate diffuse plaque bilaterally with no compelling duplex Doppler sonographic evidence of hemodynamically significant stenosis bilaterally. <Electronically signed by Miki Marshall > 11/18/20 [id number]
== END ==
LOC: M RAD 13:33
PROVIDERS: ATTEND Surgery Vascular Surgery
DX: I70.213 Atherosclerosis of native arteries of extremities with intermittent claudication, bilateral legs (principal)

== ENCOUNTER 2021-04-09 13:19 | Outpatient (RCR) | payer MEDICARE | END 2021-04-18 | LOC: M PT 13:19 | PROVIDERS: ATTEND Family Medicine | DX: R60.9 Edema, unspecified (principal) ==

== ENCOUNTER → 2021-06-02 | Outpatient (REF) | payer MEDICARE ==
[~2021-06-02] MED LIST changes: +LOSA100T45 PO; -LOSA100T50 PO
[2021-06-02 15:47] LABS: BASO % 0.5 % (0.0-1.0); EOS # 0.2 10^3/uL (0.0-0.5); EOS % 2.1 % (0.0-3.0); HEMATOCRIT 41.4 % (36.0-47.0); HEMOGLOBIN 13.1 g/dl (12.0-15.5); LYMPH # 1.8 10^3/uL (1.5-5.0); LYMPH % 21.2 % (24.0-44.0); MEAN CORPUSCULAR HEMOGLOBIN 28.9 pg (27.0-33.0); MEAN CORPUSCULAR HGB CONC 31.6 g/dl (32.0-36.5); MEAN CORPUSCULAR VOLUME 91.2 fl (80.0-96.0); MONO # 0.7 10^3/uL (0.0-0.8); MONO % 7.9 % (2.0-8.0); NEUTROPHILS # 5.7 10^3/uL (1.5-8.5); NEUTROPHILS % 67.5 % (36.0-66.0); PLATELET COUNT, AUTOMATED 213 10^3/uL (150-450); RED BLOOD COUNT 4.54 10^6/uL (4.00-5.40); WHITE BLOOD COUNT 8.5 10^3/uL (4.0-10.0)
[2021-06-02 15:59] LABS: INR 1.7; PROTHROMBIN TIME 20.4 SECONDS (12.7-14.5)
[2021-06-02 16:01] LABS: ALBUMIN 3.5 GM/DL (3.2-5.2); BILIRUBIN,TOTAL 0.9 MG/DL (0.2-1.0); CALCIUM LEVEL 10.4 MG/DL (8.8-10.2); CHOLESTEROL RISK RATIO 1.518 (<5); CREATININE FOR GFR 1.04 MG/DL (0.55-1.30); GLOMERULAR FILTRATION RATE 54.8 (>39); POTASSIUM SERUM 3.8 MEQ/L (3.5-5.1); THYROID STIMULATING HORMONE 2.06 uIU/ML (0.358-3.740); TOTAL PROTEIN 6.5 GM/DL (6.4-8.2)
[2021-06-02 16:14] LABS: HEMOGLOBIN A1c 6.2 %
== END ==
LOC: M SFHCCLAY 11:39
PROVIDERS: ATTEND Family Medicine
DX: R23.2 Flushing (principal); I10 Essential (primary) hypertension; I70.213 Atherosclerosis of native arteries of extremities with intermittent claudication, bilateral legs; R73.09 Other abnormal glucose; Z86.718 Personal history of other venous thrombosis and embolism

== ENCOUNTER 2021-10-13 12:38 | Outpatient (RCR) | payer MEDICARE | END 2021-10-16 | LOC: M PT 12:38 | PROVIDERS: ATTEND Family Medicine | DX: R60.9 Edema, unspecified (principal) ==

== ENCOUNTER 2022-03-24 10:34 | Outpatient (RCR) | payer MEDICARE | END 2022-04-18 | LOC: M PT 10:34 | PROVIDERS: ATTEND Family Medicine | DX: R60.9 Edema, unspecified (principal) ==

== ENCOUNTER 2022-09-22 10:44 | Outpatient (RCR) | payer MEDICARE ==
[~2022-09-22 10:44] MED LIST changes: -LOSA100T45 PO; +LOSA100T46 PO
== END 2022-10-16 ==
LOC: M PT 10:44
PROVIDERS: ATTEND Family Medicine
DX: R60.9 Edema, unspecified (principal)

== ENCOUNTER → 2022-10-22 | Outpatient (REF) | payer MEDICARE ==
[2022-10-22 11:47] LABS: HEMATOCRIT 40.6 % (36.0-47.0); HEMOGLOBIN 12.9 g/dl (12.0-15.5); MEAN CORPUSCULAR HEMOGLOBIN 28.5 pg (27.0-33.0); MEAN CORPUSCULAR HGB CONC 31.8 g/dl (32.0-36.5); MEAN CORPUSCULAR VOLUME 89.8 fl (80.0-96.0); PLATELET COUNT, AUTOMATED 230 10^3/uL (150-450); RED BLOOD COUNT 4.52 10^6/uL (4.00-5.40); WHITE BLOOD COUNT 7.5 10^3/uL (4.0-10.0)
[2022-10-22 12:08] LABS: ALBUMIN 3.5 G/DL (3.2-5.2); ALKALINE PHOSPHATASE 119 U/L (46-116); ALT/SGPT 18 U/L (7.0-40); AST/SGOT 18 U/L (<34); BLOOD UREA NITROGEN 20 MG/DL (9-23); CALCIUM LEVEL 10.6 MG/DL (8.3-10.6); CARBON DIOXIDE LEVEL 31 MMOL/L (20-31); CHLORIDE LEVEL 107 MMOL/L (98-107); CHOLESTEROL LEVEL 124 MG/DL (<200); CHOLESTEROL RISK RATIO 2.05 (<5); CREATININE FOR GFR 0.92 MG/DL (0.55-1.30); GLOMERULAR FILTRATION RATE > 60.0 (>39); GLUCOSE, FASTING 115 MG/DL (74-106); HDL CHOLESTEROL 60.3 MG/DL (>40); LDL CHOLESTEROL 46.9 MG/DL (<100); NON-HDL-C 63.7 MG/DL; POTASSIUM SERUM 4.4 MMOL/L (3.5-5.1); SODIUM LEVEL 141 MMOL/L (136-145); TOTAL PROTEIN 6.5 G/DL (5.7-8.2); TRIGLYCERIDES LEVEL 84 MG/DL (<150)
[2022-10-22 12:24] LABS: HEMOGLOBIN A1c 6.5 % (4.0-6.0)
== END ==
LOC: M SFHCCLAY 09:40
PROVIDERS: ATTEND Family Medicine
DX: I10 Essential (primary) hypertension (principal); R73.01 Impaired fasting glucose; E78.2 Mixed hyperlipidemia

== ENCOUNTER 2023-03-04 09:06 | Outpatient (RCR) | payer MEDICARE | END 2023-03-18 | LOC: M PT 09:06 | PROVIDERS: ATTEND Family Medicine | DX: M48.00 Spinal stenosis, site unspecified (principal); Z99.3 Dependence on wheelchair ==

== ENCOUNTER 2023-03-25 10:37 | Outpatient (RCR) | payer MEDICARE | END 2023-04-18 | LOC: M PT 10:37 | PROVIDERS: ATTEND Family Medicine | DX: R60.9 Edema, unspecified (principal) ==

== ENCOUNTER → 2023-08-30 | Outpatient (REF) | payer MEDICARE ==
[2023-08-30 17:00] LABS: ALBUMIN 3.5 G/DL (3.2-5.2); ALKALINE PHOSPHATASE 140 U/L (46-116); ALT/SGPT 18 U/L (7.0-40); AST/SGOT 24 U/L (<34); BILIRUBIN,TOTAL 0.9 MG/DL (0.3-1.2); BLOOD UREA NITROGEN 15 MG/DL (9-23); CALCIUM LEVEL 10.5 MG/DL (8.3-10.6); CARBON DIOXIDE LEVEL 28 MMOL/L (20-31); CHLORIDE LEVEL 106 MMOL/L (98-107); CHOLESTEROL LEVEL 118 MG/DL (<200); CHOLESTEROL RISK RATIO 2.22 (<5); CREATININE FOR GFR 0.81 MG/DL (0.55-1.30); GLOMERULAR FILTRATION RATE > 60.0 (>39); GLUCOSE, FASTING 92 MG/DL (74-106); LDL CHOLESTEROL 42.2 MG/DL (<100); POTASSIUM SERUM 3.9 MMOL/L (3.5-5.1); SODIUM LEVEL 140 MMOL/L (136-145); TOTAL PROTEIN 6.5 G/DL (5.7-8.2); TRIGLYCERIDES LEVEL 114 MG/DL (<150)
[2023-08-30 17:02] LABS: HEMOGLOBIN A1c 5.6 % (4.0-6.0); THYROID STIMULATING HORMONE 2.326 uIU/ML (0.55-4.78)
[2023-08-30 17:03] LABS: HEMOGLOBIN 12.1 g/dl (12.0-15.5); MEAN CORPUSCULAR HEMOGLOBIN 28.8 pg (27.0-33.0); MEAN CORPUSCULAR HGB CONC 31.8 g/dl (32.0-36.5); MEAN CORPUSCULAR VOLUME 90.5 fl (80.0-96.0); PLATELET COUNT, AUTOMATED 223 10^3/uL (150-450); WHITE BLOOD COUNT 7.6 10^3/uL (4.0-10.0)
[2023-08-30 17:09] LABS: INR 1.86; PROTHROMBIN TIME 20.8 SECONDS (12.5-14.5)
== END ==
LOC: M SFHCCLAY 13:02
PROVIDERS: ATTEND Family Medicine
DX: I10 Essential (primary) hypertension (principal); E78.2 Mixed hyperlipidemia; R73.01 Impaired fasting glucose; Z86.718 Personal history of other venous thrombosis and embolism; Z79.01 Long term (current) use of anticoagulants

== ENCOUNTER → 2023-11-08 | Outpatient (REF) | payer MEDICARE ==
[~2023-11-08] MED LIST changes: +ONDA-282 PO; -ONDA4TAB6 PO
== END ==
LOC: M SFHCCLAY 12:07
PROVIDERS: ATTEND Family Medicine
DX: Z86.718 Personal history of other venous thrombosis and embolism (principal); Z79.01 Long term (current) use of anticoagulants

== ENCOUNTER 2023-12-30 10:42 | Outpatient (RCR) | payer MEDICARE, OTHER | END 2024-01-17 | LOC: M PT 10:42 | PROVIDERS: ATTEND Family Medicine | DX: R60.9 Edema, unspecified (principal) ==

== ENCOUNTER → 2024-05-12 | Outpatient (REF) | payer MEDICARE ==
[~2024-05-12] MED LIST changes: -ADV500INH INH; +ADVA1AER10 INH
[2024-05-12 18:26] LABS: HEMATOCRIT 39.5 % (36.0-47.0); HEMOGLOBIN 12.2 g/dl (12.0-15.5); MEAN CORPUSCULAR HEMOGLOBIN 27.8 pg (27.0-33.0); MEAN CORPUSCULAR HGB CONC 30.9 g/dl (32.0-36.5); PLATELET COUNT, AUTOMATED 227 10^3/uL (150-450); RED BLOOD COUNT 4.39 10^6/uL (4.00-5.40); WHITE BLOOD COUNT 6.8 10^3/uL (4.0-10.0)
[2024-05-12 18:45] LABS: HEMOGLOBIN A1c 5.9 % (4.0-6.0)
[2024-05-12 19:03] LABS: ALBUMIN 3.6 G/DL (3.2-5.2); ALKALINE PHOSPHATASE 103 U/L (35-104); ALT/SGPT 20 U/L (7.0-40); AST/SGOT 23 U/L (<34); BILIRUBIN,TOTAL 0.6 MG/DL (0.3-1.2); BLOOD UREA NITROGEN 19 MG/DL (9-23); CALCIUM LEVEL 10.5 MG/DL (8.3-10.6); CARBON DIOXIDE LEVEL 30 MMOL/L (20-31); CHLORIDE LEVEL 105 MMOL/L (98-107); CREATININE FOR GFR 0.83 MG/DL (0.55-1.30); GLOMERULAR FILTRATION RATE > 60.0 (>39); GLUCOSE, FASTING 133 MG/DL (74-106); SODIUM LEVEL 145 MMOL/L (136-145); TOTAL PROTEIN 6.9 G/DL (5.7-8.2)
== END ==
LOC: M SFHCCLAY 11:00
PROVIDERS: ATTEND Family Medicine
DX: I10 Essential (primary) hypertension (principal); R73.01 Impaired fasting glucose

== ENCOUNTER → 2024-08-30 | Outpatient (CLI) | payer MEDICARE, MEDICAID | LOC: M PLAIMG 10:51 | PROVIDERS: ATTEND Family Medicine | DX: R44.3 Hallucinations, unspecified (principal) ==

== ENCOUNTER → 2024-10-19 | Outpatient (REF) | payer MEDICARE ==
[2024-10-19 17:52] LABS: PLATELET COUNT, AUTOMATED 221 10^3/uL (150-450)
[2024-10-19 17:56] LABS: ALT/SGPT 16 U/L (7.0-40); AST/SGOT 24 U/L (<34); CALCIUM LEVEL 10.3 MG/DL (8.3-10.6); CARBON DIOXIDE LEVEL 27 MMOL/L (20-31); CHLORIDE LEVEL 107 MMOL/L (98-107); CHOLESTEROL LEVEL 120 MG/DL (<200); CHOLESTEROL RISK RATIO 2.40 (<5); CREATININE FOR GFR 0.90 MG/DL (0.55-1.30); GLOMERULAR FILTRATION RATE 65.0 (>39); LDL CHOLESTEROL 50.8 MG/DL (<100); NON-HDL-C 70.0 MG/DL; POTASSIUM SERUM 4.2 MMOL/L (3.5-5.1); SODIUM LEVEL 145 MMOL/L (136-145); TRIGLYCERIDES LEVEL 96 MG/DL (<150)
[2024-10-25 19:45] LABS: LYME TOTAL ANTIBODY CIA <= 0.90 Index (<=0.90)
== END ==
LOC: M SFHCCLAY 11:03
PROVIDERS: ATTEND Family Medicine
DX: R44.3 Hallucinations, unspecified (principal); I10 Essential (primary) hypertension; E78.2 Mixed hyperlipidemia; Z11.3 Encounter for screening for infections with a predominantly sexual mode of transmission; Z72.89 Other problems related to lifestyle

== ENCOUNTER 2025-01-25 08:22 | Observation (INO) | payer MEDICARE, MEDICAID ==
[2025-01-25] MEDS ORDERED: amLODIPine 5 MG TAB PO ONE (09:55)
[2025-01-25] MEDS: ACETAMINOPHEN *IV* 1,000 MG in IV 1 EA IV ONE (10:04)
[2025-01-25] MEDS: LOSARTAN 50 MG TABLET PO ONE (10:05)
[2025-01-25 10:17] LABS: BASO # 0.0 10^3/uL (0.0-0.2); BASO % 0.5 % (0.0-1.0); EOS # 0.2 10^3/uL (0.0-0.5); EOS % 2.7 % (0.0-3.0); LYMPH # 1.6 10^3/uL (1.5-5.0); LYMPH % 28.6 % (24.0-44.0); MONO # 0.6 10^3/uL (0.0-0.8); MONO % 11.0 % (2.0-8.0); NEUTROPHILS # 3.2 10^3/uL (1.5-8.5); NEUTROPHILS % 57.0 % (36.0-66.0); PLATELET COUNT, AUTOMATED 218 10^3/uL (150-450)
[2025-01-25 10:31] LABS: ERYTHROCYTE SEDIMENTATION RATE 45 mm/hr (0-30)
[2025-01-25 10:43] LABS: C REACTIVE PROTEIN QUANTITATIV < 0.50 MG/DL (<1.0); CALCIUM LEVEL 10.2 MG/DL (8.3-10.6); CARBON DIOXIDE LEVEL 25 MMOL/L (20-31); CHLORIDE LEVEL 108 MMOL/L (98-107); CREATININE FOR GFR 0.82 MG/DL (0.55-1.30); GLOMERULAR FILTRATION RATE 72.3 (>32); POTASSIUM SERUM 3.6 MMOL/L (3.5-5.1); SODIUM LEVEL 145 MMOL/L (136-145)
[2025-01-25] MEDS: MORPHINE 2 MG/ML 1 ML VIAL IV ONE (11:15)
[2025-01-25] MEDS ORDERED: TREL1AER INH (13:56)
[2025-01-25] MEDS ORDERED: BRIN8DRO OU (13:56)
[2025-01-25] MEDS ORDERED: PREDOPD OU (13:56)
[2025-01-25] MEDS ORDERED: FURO40TA2 PO (13:56)
[2025-01-25] MEDS ORDERED: AMLO1TAB24 PO (13:56)
[2025-01-25] MEDS ORDERED: DULO60CA35 PO (13:56)
[2025-01-25] MEDS ORDERED: HOME MED LIST COMPLETE! XX SCH (14:00)
[2025-01-25] MEDS ORDERED: ALBUTEROL SULFATE 2.5 MG/0.5 ML INH CONCENTRATE NEB SOLN NEB PRN (14:45)
[2025-01-25] MEDS: KETOROLAC TROMETHAMINE 10 MG TAB PO SCH (16:06)
[2025-01-25] MEDS: ACETAMINOPHEN 500 MG TAB PO SCH (16:07)
[2025-01-25 17:09] LABS: INR 1.87
[2025-01-25] MEDS ORDERED: ISOVUE-370 76% 100 ML VIAL As Ordered ONE (17:39)
[2025-01-25] MEDS: ADVAIR HFA 230/21 MCG INHALER INH SCH (19:34)
[2025-01-25 20:00] VITALS: BP 119/68; TEMP 97.5; O2SAT 96
[2025-01-25 20:40] VITALS: BP 124/51; TEMP 97.9; O2SAT 97
[2025-01-25] MEDS: SIMVASTATIN 20 MG TAB PO SCH (20:44)
[2025-01-25] MEDS: WARFARIN SOD 2.5MG TAB PO SCH (20:45)
[2025-01-25] MEDS: amLODIPine 5 MG TAB PO SCH (20:45)
[2025-01-26 04:00] VITALS: BP 119/65; TEMP 97.9; O2SAT 98
[2025-01-26 06:53] LABS: BASO # 0.0 10^3/uL (0.0-0.2); BASO % 0.2 % (0.0-1.0); EOS # 0.1 10^3/uL (0.0-0.5); EOS % 1.2 % (0.0-3.0); LYMPH # 0.9 10^3/uL (1.5-5.0); LYMPH % 9.9 % (24.0-44.0); MONO # 0.9 10^3/uL (0.0-0.8); MONO % 10.1 % (2.0-8.0); NEUTROPHILS # 7.2 10^3/uL (1.5-8.5); NEUTROPHILS % 78.3 % (36.0-66.0); PLATELET COUNT, AUTOMATED 219 10^3/uL (150-450)
[2025-01-26 07:08] LABS: INR 2.19
[2025-01-26 07:18] LABS: CALCIUM LEVEL 9.8 MG/DL (8.3-10.6); CARBON DIOXIDE LEVEL 26.0 MMOL/L (20-31); CHLORIDE LEVEL 110.0 MMOL/L (98-107); CREATININE FOR GFR 0.9 MG/DL (0.55-1.30); GLOMERULAR FILTRATION RATE 64.6 (>32); POTASSIUM SERUM 3.7 MMOL/L (3.5-5.1); SODIUM LEVEL 146.0 MMOL/L (136-145)
[2025-01-26] MEDS: TIOTROPIUM BROM 2.5MCG/ACTUATION 4GM INH INH SCH (07:22)
[2025-01-26] MEDS: LOSARTAN 50 MG TABLET PO SCH (08:49)
[2025-01-26] MEDS: prednisoLONE ACET 1% OPHTH SUSP 5ML OU SCH (08:51)
[2025-01-26 12:41] VITALS: BP 126/48; TEMP 98.1; O2SAT 99
[2025-01-26] MEDS: WARFARIN SOD 5MG TAB PO SCH (16:05)
[2025-01-26 20:55] VITALS: BP 125/51; TEMP 98.1; O2SAT 97
[2025-01-27] VITALS (7 sets, daily range): BP systolic 124–143; BP diastolic 53–75; TEMP 97.2–97.9; O2SAT 93–98
[2025-01-28 04:25] VITALS: BP 145/64; TEMP 97.9; O2SAT 95
[2025-01-28] MEDS ORDERED: PILL CUTTER 1 EACH XX PRN (10:30)
[2025-01-28 12:00] VITALS: BP 133/59; TEMP 97.9; O2SAT 99
[2025-01-28] MEDS: NAPROXEN 250 MG TAB PO SCH (21:06)
[2025-01-29 04:35] VITALS: BP 149/64; TEMP 98.6; O2SAT 96
[2025-01-29 06:41] LABS: BASO # 0.0 10^3/uL (0.0-0.2); BASO % 0.3 % (0.0-1.0); EOS # 0.3 10^3/uL (0.0-0.5); EOS % 4.8 % (0.0-3.0); LYMPH # 1.5 10^3/uL (1.5-5.0); LYMPH % 24.4 % (24.0-44.0); MONO # 0.7 10^3/uL (0.0-0.8); MONO % 10.8 % (2.0-8.0); NEUTROPHILS # 3.7 10^3/uL (1.5-8.5); NEUTROPHILS % 59.2 % (36.0-66.0); PLATELET COUNT, AUTOMATED 201 10^3/uL (150-450)
[2025-01-29 07:07] LABS: CALCIUM LEVEL 9.2 MG/DL (8.3-10.6); CARBON DIOXIDE LEVEL 23.0 MMOL/L (20-31); CHLORIDE LEVEL 112.0 MMOL/L (98-107); CREATININE FOR GFR 0.82 MG/DL (0.55-1.30); GLOMERULAR FILTRATION RATE 72.3 (>32); POTASSIUM SERUM 4.0 MMOL/L (3.5-5.1); SODIUM LEVEL 145.0 MMOL/L (136-145)
[2025-01-29] MEDS: FUROSEMIDE 40 MG TAB PO SCH (08:24)
[2025-01-29] MEDS: BRIMONIDINE 0.15% OPHTH SOLN 5 ML OU SCH (09:49)
[2025-01-29] MEDS: BRINZOLAMIDE 1% OPHTH SUSP 10 ML OU SCH (09:49)
[2025-01-30 04:08] VITALS: BP 149/69; TEMP 97.9; O2SAT 98
[2025-01-30 20:03] VITALS: BP 143/63; TEMP 98.6; O2SAT 99
[2025-01-31 03:58] VITALS: BP 128/67; TEMP 98.1; O2SAT 99
[2025-01-31 08:03] LABS: INR 2.44
[2025-01-31 08:13] VITALS: BP 166/75
[2025-01-31] MEDS ORDERED: METH-1164 PO (11:24)
[2025-01-31] MEDS ORDERED: OXYC-517 PO (11:24)
== END 2025-01-31 13:27 | disposition home health service (06) ==
LOC: EDBD 08:22 → M ED 08:22 → M ED INP 08:23 → INTOOBSV 14:41 → UNDOADMOB 14:41 → M ED INP 14:41 → M MSPAV 16:25
PROVIDERS: ADMIT Internal Medicine Nephrology; ATTEND Internal Medicine
DX: M79.604 Pain in right leg (principal); R10.30 Lower abdominal pain, unspecified; M16.0 Bilateral primary osteoarthritis of hip; R26.81 Unsteadiness on feet; J44.9 Chronic obstructive pulmonary disease, unspecified; I10 Essential (primary) hypertension; E78.5 Hyperlipidemia, unspecified; Z86.718 Personal history of other venous thrombosis and embolism; I73.9 Peripheral vascular disease, unspecified; Z95.828 Presence of other vascular implants and grafts; I87.2 Venous insufficiency (chronic) (peripheral); M48.061 Spinal stenosis, lumbar region without neurogenic claudication; F32.A Depression, unspecified; G47.33 Obstructive sleep apnea (adult) (pediatric); Z98.0 Intestinal bypass and anastomosis status; Z98.890 Other specified postprocedural states; M17.0 Bilateral primary osteoarthritis of knee; Z90.49 Acquired absence of other specified parts of digestive tract; Z90.89 Acquired absence of other organs; Z98.891 History of uterine scar from previous surgery; Z90.79 Acquired absence of other genital organ(s); Z87.891 Personal history of nicotine dependence; Z83.6 Family history of other diseases of the respiratory system; Z82.0 Family history of epilepsy and other diseases of the nervous system; Z79.899 Other long term (current) drug therapy; Z79.01 Long term (current) use of anticoagulants; Z79.51 Long term (current) use of inhaled steroids; Z88.8 Allergy status to other drugs, medicaments and biological substances
CPT/HCPCS: 36415; 73521; 73552; 75635; 80048; 85025; 85610; 85652; 86140; 93971; 94640; 94660; 96365; 96366; 96375; 97110; 97116; 97162; 97165; 97530; 97535; 99285; G0378; J0131; Q9967

== ENCOUNTER → 2025-03-12 | Outpatient (REF) | payer MEDICARE, MEDICAID ==
[~2025-03-12] MED LIST changes: +AMLO1TAB24 PO; +BRIN8DRO OU; +DULO60CA35 PO; +FURO40TA2 PO; +METH-1164 PO; +OXYC-517 PO; +PREDOPD OU; +TREL1AER INH
[2025-03-12 19:08] LABS: BASO # 0.0 10^3/uL (0.0-0.2); BASO % 0.4 % (0.0-1.0); EOS # 0.2 10^3/uL (0.0-0.5); EOS % 2.6 % (0.0-3.0); LYMPH # 1.8 10^3/uL (1.5-5.0); LYMPH % 25.0 % (24.0-44.0); MONO # 0.5 10^3/uL (0.0-0.8); MONO % 7.6 % (2.0-8.0); NEUTROPHILS # 4.5 10^3/uL (1.5-8.5); NEUTROPHILS % 64.1 % (36.0-66.0); PLATELET COUNT, AUTOMATED 282 10^3/uL (150-450)
[2025-03-12 19:11] LABS: FREE T4 0.97 NG/DL (0.89-1.76)
[2025-03-12 19:14] LABS: ALT/SGPT 17 U/L (7.0-40); AST/SGOT 26 U/L (<34); CALCIUM LEVEL 9.9 MG/DL (8.3-10.6); CARBON DIOXIDE LEVEL 28 MMOL/L (20-31); CHLORIDE LEVEL 106 MMOL/L (98-107); CREATININE FOR GFR 0.88 MG/DL (0.55-1.30); GLOMERULAR FILTRATION RATE 66.4 (>32); POTASSIUM SERUM 3.5 MMOL/L (3.5-5.1); SODIUM LEVEL 145 MMOL/L (136-145)
[2025-03-12 19:15] LABS: VITAMIN B12 LEVEL 693 PG/ML (211-911)
== END ==
LOC: M LAB REF 18:10
PROVIDERS: ATTEND Psychiatry & Neurology Neurology
DX: E07.9 Disorder of thyroid, unspecified (principal); E53.8 Deficiency of other specified B group vitamins; Z11.3 Encounter for screening for infections with a predominantly sexual mode of transmission; R41.3 Other amnesia

== ENCOUNTER → 2025-03-30 | Outpatient (REF) | payer MEDICARE ==
[2025-03-30 13:45] LABS: ESTIMATED AVERAGE GLUCOSE 120.0 MG/DL (60-110)
[2025-03-30 13:53] LABS: C REACTIVE PROTEIN QUANTITATIV < 0.50 MG/DL (<1.0)
[2025-03-30 13:54] LABS: ALT/SGPT 17 U/L (7.0-40); AST/SGOT 26 U/L (<34); CALCIUM LEVEL 10.0 MG/DL (8.3-10.6); CARBON DIOXIDE LEVEL 29 MMOL/L (20-31); CHLORIDE LEVEL 107 MMOL/L (98-107); CREATININE FOR GFR 0.81 MG/DL (0.55-1.30); GLOMERULAR FILTRATION RATE 73.3 (>32); POTASSIUM SERUM 3.6 MMOL/L (3.5-5.1); RHEUMATOID FACTOR QUANT < 3.5 IU/ML (<14); SODIUM LEVEL 143 MMOL/L (136-145)
[2025-04-02 12:12] LABS: SSA SJOGRENS A <1.0 NEG AI (<1.0 NEG); SSB SJOGRENS B <1.0 NEG AI (<1.0 NEG)
[2025-04-02 20:32] LABS: ANA PATTERN 2 Nuclear, Homogeneous; ANA TITER 2 1:80 titer (NEGATIVE)
== END ==
LOC: M SFHCCLAY 08:39
PROVIDERS: ATTEND Family Medicine
DX: E78.2 Mixed hyperlipidemia (principal); I10 Essential (primary) hypertension; H20.9 Unspecified iridocyclitis; M25.562 Pain in left knee; R73.01 Impaired fasting glucose